=== PATIENT | male | born 1985 | race Caucasian/White ===

== ENCOUNTER 2023-03-15 02:01 | Emergency (ER) | payer OTHER, SELFPAY ==
[2023-03-15 02:05] VITALS: BP 145/76; PULSE 86; RESP 16; TEMP 37.2; O2SAT 98; BMI 21.5
[2023-03-15 02:09] VITALS: BP 145/76; PULSE 84; O2SAT 98
[2023-03-15 02:30] VITALS: BP 117/73; PULSE 83; RESP 15; O2SAT 95
--- NOTE | 2023-03-15 02:32 | DI.RAD.S_ITS ---
PROCEDURE: XR CHEST 1V INDICATIONS: chest pain TECHNIQUE: One view of the chest was acquired. COMPARISON: None. FINDINGS: Surgical changes and devices: None. Lungs and pleura: Lungs are clear. No pleural effusions or pneumothorax. Mediastinum: Mediastinal contours appear normal. Heart size is normal. Bones and chest wall: No suspicious bony lesions. Overlying soft tissues appear unremarkable. IMPRESSION: 1. No acute cardiopulmonary disease. 2. Final interpretation is concordant with preliminary report. Dictated by: Hannah Petit M.D. on 03/15/2023 at 6:43 Approved by: Hannah Petit M.D. on 03/15/2023 at 6:43
--- NOTE | 2023-03-15 02:48 | ED_ITS ---
HPI - Arrhythmia/Palpitations General Chief Complaint: Arrhythmia/Palpitations Stated Complaint: heart running fast Time Seen by Provider: 03/15/23 02:32 Source: patient Mode of arrival: Family Vehicle History of Present Illness HPI narrative: Patient is a healthy 37-year-old male who presents today with heart palpitations. 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 His heart rate is currently 91 and he is asymptomatic. Denies any dizziness lightheadedness. He denies any caffeine use at all no alcohol use. This has happened to him once before when he had a heart rate of 186 but it has never been captured on the monitor. He does not have a primary care provider. Related Data Allergies Allergy/AdvReac Type Severity Reaction Status Date / Time IV CONTRAST Allergy Intermediate WHEEZING Uncoded 05/27/17 12:26 ASPIRIN Allergy Mild Uncoded 05/27/17 12:26 Exam Initial Vital Signs Initial Vital Signs: Vital Signs Temperature 98.9 F 03/15/23 02:05 Pulse Rate 86 03/15/23 02:05 Respiratory Rate 16 03/15/23 02:05 Blood Pressure 145/76 H 03/15/23 02:05 Pulse Oximetry 98 03/15/23 02:05 Oxygen Delivery Method Room Air 03/15/23 02:05 GENERAL: Alert 37-year-old male and in no acute distress. HEENT: Head atraumatic,EOMI, pupils reactive, face symmetric, moist mucous membranes CARDIOVASCULAR: Regular rate and rhythm without murmurs, rubs or gallops. RESPIRATORY: Breath sounds equal bilaterally, no wheezes rales or rhonchi. EXTREMITIES: Normal range of motion, no clubbing or edema. Neurovascularly intact NEUROLOGICAL: Alert and oriented x4.Normal gait and speech. SKIN: Warm, dry, no laceration, no petechiae, no rashes or lesions. Course Orders Ordered: ED Orders 03/15/23 02:32 XR chest 1V Stat EKG-12 Lead Stat 03/15/23 02:50 Complete Blood Count AUTO DIFF Stat Comprehensive Metabolic Panel Stat Lipase Stat TSH [Thyroid Stimulating Hormone] Stat Troponin & CK Cardiac Panel Stat Vital Signs Vital signs: Vital Signs - 8 hr 03/15/23 02:05 03/15/23 02:09 03/15/23 02:09 Temperature 98.9 F Pulse Rate 86 84 Respiratory Rate 16 Blood Pressure 145/76 H 145/76 H Pulse Oximetry 98 98 Oxygen Delivery Method Room Air Nasal Cannula 03/15/23 02:30 03/15/23 02:30 03/15/23 03:00 Temperature Pulse Rate 83 89 Respiratory Rate 15 17 Blood Pressure 117/73 Pulse Oximetry 95 96 Oxygen Delivery Method Nasal Cannula Nasal Cannula 03/15/23 03:00 03/15/23 03:30 03/15/23 03:30 Temperature Pulse Rate 82 Respiratory Rate 26 H Blood Pressure 101/79 109/75 Pulse Oximetry 95 Oxygen Delivery Method Room Air 03/15/23 04:00 03/15/23 04:00 Temperature Pulse Rate 77 Respiratory Rate 18 Blood Pressure 114/80 Pulse Oximetry 97 Oxygen Delivery Method Room Air MDM - Arrhythmia/Palpitations Lab Data 03/15/23 02:50 03/15/23 02:50 Labs: Lab Results 03/15/23 Range/Units 02:50 WBC 5.5 (4.5-11.0) X10^3/uL RBC 5.42 (4.5-5.9) X10^6/uL Hgb 16.3 (13.5-17.5) g/dL Hct 45.5 (41-53) % MCV 83.9 (80-100) fL MCH 30.2 (26-34) PG MCHC 36.0 (30-36) % RDW 12.4 (11.6-14.8) % Plt Count 200 (150-400) X10^3/uL Neut % (Auto) 52.6 (50-75) % Lymph % (Auto) 32.1 (25-40) % Love % (Auto) 10.1 (3-14) % Eos % (Auto) 0.6 L (2-4) % Baso % (Auto) 4.6 H (0-2) % Neut # (Auto) 2900 (2721-9923) /uL Lymph # (Auto) 1800 (5210-8704) /uL Love # (Auto) 500 (0-900) /uL Eos # (Auto) 0 (0-450) /uL Baso # (Auto) 200 H (0-100) /uL Sodium 136 L (137-145) mmol/L Potassium 4.1 (3.4-5.1) mmol/L Chloride 101 (98-107) mmol/L Carbon Dioxide 25 (22-32) mmol/L BUN 23 H (9-20) mg/dL Creatinine 0.89 (0.66-1.25) mg/dL Estimated GFR > 60 (>60) mL/min BUN/Creatinine Ratio 25.8 H (6-22) Glucose 89 (70-100) mg/dL Calcium 8.9 (8.4-10.2) mg/dL Total Bilirubin 0.8 (0.2-1.3) mg/dL AST 36 (17-59) IU/L ALT 24 (<50) IU/L Alkaline Phosphatase 48 (38-126) U/L Total Creatine Kinase 85 (55-170) U/L Troponin I < 0.012 (0.01-0.034) ng/mL Total Protein 7.9 (6.3-8.2) g/dL Albumin 4.4 (3.5-5.0) g/dL Globulin 3.5 (1.7-4.1) g/dL Albumin/Globulin Ratio 1.3 (1.0-2.8) Lipase 128 (23-300) U/L TSH 1.48 (0.47-4.68) uIU/mL Imaging Data Chest x-ray: Radiologist's Impresson: Preliminary report no acute cardiopulmonary disease ECG Data Interpretation: Normal sinus rhythm rate 81 [place] interval 150 QRS 4 QTC [address] changes no T- wave inversions MDM Narrative Medical decision making narrative: Patient is a young well-appearing 37 year male with history of palpitations. He presents today in normal sinus rhythm on the monitor with a heart rate in the 90s. He is completely asymptomatic at this time. Blood work has been reviewed: No clinical significant abnormalities Chest x-ray has been reviewed without cardiopulmonary process EKG has been reviewed Encouraged patient to get a primary care provider he ultimately needs a Holter monitor. We talked about other ways such as heart rate monitoring such. He does not draining a significant amount of caffeine or alcohol this is unlikely to be contributing to his palpitations. Patient actually attempted to squat down and stand up long monitor because that is when he fell symptoms. He actually did have a rhythm change upon standing his heart rate did speed up into the 120s it was still narrow complex and regular did not quite look like SVT never went above 120 he would squat back down and it went back into a normal sinus rhythm. Rhythm was not an AV shawn block or other alarming arrhythmia. At this time encourage outpatient follow-up return as needed. Discharge Plan Departure Patient Disposition: Home Clinical Impression: Palpitations Instructions: DI for Palpitations Activity Restrictions/Additional Instructions: *You have been diagnosed with palpitations *What to do: At this time you do need Holter monitor that is can be arranged by her primary care provider. You may also get a watch *Continue to take medications as directed *Follow up with your primary care provider in 2-3 days or call [phone] *Return to ER if you should have increasing heart palpitations dizziness lightheadedness shortness of breath passing or any new, worsening or concerning symptoms Stand Alone Forms: Patient Portal/API
[2023-03-15 03:00] VITALS: BP 101/79; PULSE 89; RESP 17; O2SAT 96
[2023-03-15 03:08] LABS: Add Manual Diff / Slide Review NO; Basophils Absolute Auto 200 /uL (0-100); Basophils Percent Auto 4.6 % (0-2); Eosinophils Absolute Auto 0 /uL (0-450); Eosinophils Percent Auto 0.6 % (2-4); Hematocrit 45.5 % (41-53); Hemoglobin 16.3 g/dL (13.5-17.5); Lymphocytes Absolute Auto 1800 /uL (1100-4500); Lymphocytes Percent Auto 32.1 % (25-40); Mean Corpuscular Hemoglobin 30.2 PG (26-34); Mean Corpuscular Volume 83.9 fL (80-100); Monocytes Absolute Auto 500 /uL (0-900); Monocytes Percent Auto 10.1 % (3-14); Neutrophils Absolute Auto 2900 /uL (1500-7000); Neutrophils Percent Auto 52.6 % (50-75); Platelet Count 200 X10^3/uL (150-400); Red Blood Cell Count 5.42 X10^6/uL (4.5-5.9); Red Cell Distribution Width 12.4 % (11.6-14.8); White Blood Cell Count 5.5 X10^3/uL (4.5-11.0)
[2023-03-15 03:22] LABS: Alanine Aminotransferase 24 IU/L (<50); Albumin 4.4 g/dL (3.5-5.0); Albumin Globulin Ratio 1.3 (1.0-2.8); Alkaline Phosphatase 48 U/L (38-126); Aspartate Aminotransferase 36 IU/L (17-59); BUN Creatinine Ratio 25.8 (6-22); Bilirubin Total 0.8 mg/dL (0.2-1.3); Blood Urea Nitrogen 23 mg/dL (9-20); Calcium 8.9 mg/dL (8.4-10.2); Carbon Dioxide 25 mmol/L (22-32); Chloride 101 mmol/L (98-107); Creatine Kinase 85 U/L (55-170); Estimated Glomerular Filt Rate > 60 mL/min (>60); Globulin 3.5 g/dL (1.7-4.1); Glucose 89 mg/dL (70-100); HEMOLYSIS < 15 (0-50); Lipase 128 U/L (23-300); Potassium 4.1 mmol/L (3.4-5.1); Sodium 136 mmol/L (137-145); Total Protein 7.9 g/dL (6.3-8.2)
[2023-03-15 03:30] VITALS: BP 109/75; PULSE 82; RESP 26; O2SAT 95
[2023-03-15 03:33] LABS: Troponin I < 0.012 ng/mL (0.01-0.034)
[2023-03-15 04:00] VITALS: BP 114/80; PULSE 77; RESP 18; O2SAT 97
[2023-03-15 04:11] LABS: Thyroid Stimulating Hormone 1.48 uIU/mL (0.47-4.68)
== END 2023-03-15 04:25 | disposition home or self-care (01) ==
PROVIDERS: Emergency Provider Emergency Medicine
DX: R00.2 Palpitations (principal)
CPT/HCPCS: 36415; 71045; 80053; 82550; 83690; 84443; 84484; 85025; 93005; 99284